=== PATIENT | male | born 1955 | race Caucasian/White ===

== ENCOUNTER → 2024-02-27 14:07 | Outpatient (REF) | payer BC, SELFPAY | LOC: RAD 14:07 | PROVIDERS: ATTENDING PHYSICIAN Internal Medicine | DX: Z00.00 Encounter for general adult medical examination without abnormal findings (principal); Z72.0 Tobacco use | CPT/HCPCS: 73502 ==

== ENCOUNTER → 2024-03-05 07:04 | Outpatient (REF) | payer OTHER, SELFPAY | LOC: RAD 07:04 | PROVIDERS: ATTENDING PHYSICIAN Internal Medicine | DX: Z87.891 Personal history of nicotine dependence (principal); Z72.0 Tobacco use | CPT/HCPCS: 71271 ==

== ENCOUNTER → 2024-04-20 14:43 | Outpatient (REF) | payer OTHER, SELFPAY | LOC: RAD 14:43 | PROVIDERS: ATTENDING PHYSICIAN Internal Medicine | DX: Z00.00 Encounter for general adult medical examination without abnormal findings (principal); Z72.0 Tobacco use | CPT/HCPCS: 76770 ==

== ENCOUNTER → 2024-08-21 10:35 | Outpatient (REF) | payer OTHER, SELFPAY | LOC: HWRAD 10:35 | PROVIDERS: ATTENDING PHYSICIAN Hospitalist | DX: M79.605 Pain in left leg (principal) | CPT/HCPCS: 76882 ==

== ENCOUNTER → 2025-04-26 11:35 | Outpatient (REF) | payer OTHER, SELFPAY | LOC: RAD 11:35 | PROVIDERS: ATTENDING PHYSICIAN Nurse Practitioner; FAMILY PHYSICIAN Internal Medicine | DX: M25.512 Pain in left shoulder (principal) | CPT/HCPCS: 73030 ==

== ENCOUNTER → 2025-05-26 09:31 | Outpatient (REF) | payer OTHER, SELFPAY | LOC: HWRAD 09:31 | PROVIDERS: ATTENDING PHYSICIAN Internal Medicine | DX: Z87.891 Personal history of nicotine dependence (principal); Z72.0 Tobacco use | CPT/HCPCS: 71271 ==

== ENCOUNTER → 2025-05-27 07:41 | Outpatient (REF) | payer OTHER, SELFPAY | LOC: RAD 07:41 | PROVIDERS: ATTENDING PHYSICIAN Internal Medicine | DX: I71.40 Abdominal aortic aneurysm, without rupture, unspecified (principal); E04.1 Nontoxic single thyroid nodule | CPT/HCPCS: 76536; 76770 ==

== ENCOUNTER → 2025-06-03 10:06 | Outpatient (REF) | payer OTHER, SELFPAY | LOC: RCS 10:06 | PROVIDERS: ATTENDING PHYSICIAN Orthopaedic Surgery Hand Surgery; FAMILY PHYSICIAN Internal Medicine | DX: Z01.818 Encounter for other preprocedural examination (principal) | CPT/HCPCS: 93005 ==

== ENCOUNTER 2025-07-19 06:36 | Outpatient (RCR) | payer OTHER, SELFPAY | END 2025-07-19 23:59 | disposition home or self-care (01) | LOC: RPT 06:36 | PROVIDERS: ATTENDING PHYSICIAN Student in an Organized Health Care Education/Training Program; FAMILY PHYSICIAN Internal Medicine | DX: Z47.89 Encounter for other orthopedic aftercare (principal); M75.102 Unspecified rotator cuff tear or rupture of left shoulder, not specified as traumatic; Z73.6 Limitation of activities due to disability; M62.81 Muscle weakness (generalized) | CPT/HCPCS: 97010; 97110; 97140; 97161 ==

== ENCOUNTER 2025-08-18 07:23 | Outpatient (RCR) | payer OTHER, SELFPAY | END 2025-08-18 23:59 | disposition home or self-care (01) | LOC: RPT 07:23 | PROVIDERS: ATTENDING PHYSICIAN Student in an Organized Health Care Education/Training Program; FAMILY PHYSICIAN Internal Medicine | DX: Z47.89 Encounter for other orthopedic aftercare (principal); M75.102 Unspecified rotator cuff tear or rupture of left shoulder, not specified as traumatic; Z73.6 Limitation of activities due to disability; M62.81 Muscle weakness (generalized) | CPT/HCPCS: 97010; 97110; 97112; 97140 ==

== ENCOUNTER 2025-09-08 06:50 | Outpatient (RCR) | payer OTHER, SELFPAY | END 2025-09-08 23:59 | disposition home or self-care (01) | LOC: RPT 06:50 | PROVIDERS: ATTENDING PHYSICIAN Student in an Organized Health Care Education/Training Program; FAMILY PHYSICIAN Internal Medicine | DX: Z47.89 Encounter for other orthopedic aftercare (principal); M75.102 Unspecified rotator cuff tear or rupture of left shoulder, not specified as traumatic; Z73.6 Limitation of activities due to disability; M62.81 Muscle weakness (generalized) | CPT/HCPCS: 97010; 97110; 97112; 97140 ==